=== PATIENT | male | born 1960 | race Caucasian/White ===

== ENCOUNTER 2023-03-17 08:44 | Outpatient (OUT) | payer OTHER, SELFPAY ==
--- NOTE | 2023-03-17 09:04 | MR_ITS ---
The [address] [address] Patient Name: ANA CARLTON MRN: [id number] date: 1960 Sex: M Assigned Patient Location: LAB Current Patient Location: Accession/Order Number: [id number] Exam Date: 03/17/2023 09:46 Report Date: 03/19/2023 09:04 At the request of: FRANKLIN ANGELES Procedure: MR head/brain wo/w con PROCEDURE: MR head/brain wo/w con COMPARISON: None. HISTORY: Sensorineural Hearing Loss Of Right Ear H90.41 TECHNIQUE: A variety of imaging planes and parameters were utilized for visualization of suspected pathology. Images were performed without and/or with intravenous contrast. FINDINGS: IACS: No evidence of acoustic schwannoma or other posterior fossa mass. INNER EARS: No abnormal signal intensity. MIDDLE EARS: No fluid or abnormal soft tissue. MASTOIDS: No fluid or abnormal soft tissue. SKULL BASE: Negative. Cavernous sinus and Meckel's caves are normal. CEREBRUM: No edema, hemorrhage, mass, acute infarction, or inappropriate atrophy. CEREBELLUM: No edema, hemorrhage, mass, acute infarction, or inappropriate atrophy. BRAINSTEM: No edema, hemorrhage, mass, acute infarction, or inappropriate atrophy. CSF SPACES: Ventricles, cisterns, and sulci are appropriate for age. No hydrocephalus, subarachnoid hemorrhage, or mass. SINUSES: Limited views demonstrate no significant mucosal thickening or fluid. ORBITS: Limited views are unremarkable. OTHER: No abnormal meningeal or parenchymal enhancement. MR/MR head/brain wo/w con IMPRESSION: 1. No abnormal or suspicious findings to account for patient's symptoms. Electronically authenticated by: MYRTLE IBARRA Date: 03/19/2023 09:04
[2023-03-17 09:05] LABS: Estimated GFR (African America >60 (>=60); Estimated GFR (Non-African Ame >60 (>=60)
== END 2023-03-17 08:45 | disposition home or self-care (01) ==
LOC: LAB 08:44
PROVIDERS: PCP Family Medicine; Visit Provider Otolaryngology
DX: H90.41 Sensorineural hearing loss, unilateral, right ear, with unrestricted hearing on the contralateral side (principal); H93.11 Tinnitus, right ear
CPT/HCPCS: 36415; 70553; 82565; A9575

== ENCOUNTER 2023-07-31 14:37 | Outpatient (OUT) | payer OTHER, SELFPAY ==
--- NOTE | 2023-07-31 14:45 | XR_ITS ---
The [address] [address] Patient Name: ANA CARLTON MRN: [id number] date: 1960 Sex: M Assigned Patient Location: RAD Current Patient Location: Accession/Order Number: [id number] Exam Date: 07/31/2023 14:52 Report Date: 08/01/2023 07:38 At the request of: ROSETTA ZIEGLER Procedure: XR foot RT 2V PROCEDURE: XR foot RT 2V COMPARISON: None. HISTORY: acute foot pain, right M79.671 FINDINGS: BONES:No acute fracture or dislocation. Mild diffuse degenerative changes with marginal osteophyte formation. Enthesopathic spurring of the calcaneus. SOFT TISSUES:Negative. No visible soft tissue swelling. EFFUSION:None visible. OTHER: Vascular calcifications XR/XR foot RT 2V IMPRESSION: No acute fracture Electronically authenticated by: SHAHBAZ BAKER Date: 08/01/2023 07:38
== END 2023-07-31 14:38 | disposition home or self-care (01) ==
LOC: RAD 14:39
PROVIDERS: PCP Family Medicine; Visit Provider Nurse Practitioner Family
DX: M79.671 Pain in right foot (principal)
CPT/HCPCS: 73620

== ENCOUNTER 2025-05-03 12:52 | Outpatient (RCR) | payer OTHER, SELFPAY | END 2025-06-01 06:50 | disposition home or self-care (01) | LOC: PT 12:52 | PROVIDERS: PCP Family Medicine; Visit Provider Anesthesiology | DX: M54.59 Other low back pain (principal) | CPT/HCPCS: 97110; 97113; 97162 ==